=== PATIENT | female | born 1965 | race Two or more races ===

== ENCOUNTER 2017-10-04 12:12 | Emergency (ER) | payer SELFPAY ==
[~2017-10-04] VITALS: Ht 165.1 cm; Wt 97.7 kg
[2017-10-04 13:32] LABS: HEMATOCRIT 38.1 % (36.0-46.0); MCH 28.3 PG (29.0-34.0); MCHC 34.1 G/DL (30.0-36.0); MCV 82.8 FL (83-99); PLATELET COUNT 160 K/uL (156-360)
[2017-10-04 13:42] LABS: CHLORIDE 105 mEq/L (99-109); POTASSIUM 4.1 mEq/L (3.7-5.4); SODIUM 137 mEq/L (136-147)
[2017-10-04 13:43] LABS: GLUCOSE 158 mg/dL (70-99)
[2017-10-04 13:47] LABS: CREATININE 0.8 mg/dL (0.6-1.3)
[2017-10-04 13:48] LABS: UREA NITROGEN (BUN) 12 mg/dL (9-23)
[2017-10-04 13:54] LABS: GFR ESTIMATE (CALCULATED) > 59 mL/min/
[2017-10-04 18:55] LABS: TROP-I INTERPRETATION NEGATIVE; TROPONIN-I < 0.01 ng/mL (0.0-0.30)
[2017-10-04 20:07] LABS: TROP-I INTERPRETATION NEGATIVE; TROPONIN-I < 0.01 ng/mL (0.0-0.30)
[2017-10-04] MEDS ORDERED: VENTOLIN HFA18 GM IH (20:49)
[2017-10-04 21:04] VITALS: BP 112/75
== END 2017-10-04 21:05 | disposition home or self-care (01) ==
LOC: EME 12:12
PROVIDERS: Physician Assistant Medical
DX: B34.9 Viral infection, unspecified (principal)
CPT/HCPCS: 71046; 80048; 84484; 85027; 93005; 94640; 99281; 99283